=== PATIENT | male | born 1975 | race African-American/Black ===

== ENCOUNTER 2021-06-03 19:32 | Emergency (ER) | payer OTHER ==
[~2021-06-03] VITALS: Ht 172.7 cm; Wt 84.4 kg
[2021-06-03 22:33] VITALS: BP 125/75
[2021-06-03 22:36] LABS: URINE BILIRUBIN NEGATIVE (Negative); URINE BLOOD TRACE (Negative); URINE CLARITY CLEAR; URINE COLOR YELLOW; URINE GLUCOSE-RANDOM* NEGATIVE (Negative); URINE KETONES NEGATIVE (Negative); URINE LEUKOCYTES-REFLEX NEGATIVE (Negative); URINE NITRITE-REFLEX NEGATIVE (Negative); URINE PROTEIN (DIPSTICK) NEGATIVE (Negative); URINE SPECIFIC GRAVITY >= 1.030 (1.005-1.035); URINE UROBILINOGEN 0.2 E.U./dl (0.2-1.0)
--- NOTE | 2021-06-04 07:18 | EKG ---
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: LOREN : 1975 Requested By: Angeles Guerra Order Number: [id number] MD: Rj Shultz Measurements Intervals [place] Rate: 55 P: 37 AK: 148 QRS: 62 QRSD: 98 T: 45 QT: 439 QTc: 420 Interpretive Statements Sinus rhythm Left ventricular hypertrophy Baseline wander in lead(s) V2 No previous ECG available for comparison Electronically Signed On 06-04-2021 7:17:57 MUSIC ASSISTANT by Rj Shultz [email or web address] <ELECTRONICALLY SIGNED> By: Rj Shultz MD, [facility] 06/04/21 0717 [id number] Rj Shultz MD, FACC /EPI
== END 2021-06-03 23:20 | disposition home or self-care (01) ==
LOC: ER 19:32
PROVIDERS: Nurse Practitioner Family
DX: I95.1 Orthostatic hypotension (principal); H53.8 Other visual disturbances